=== PATIENT | female | born 1960 | race Caucasian/White ===

== ENCOUNTER → 2016-10-06 | Outpatient (CLI) | payer BC, OTHER | LOC: MRI 08:55 | DX: M47.26 Other spondylosis with radiculopathy, lumbar region (principal); M48.06 Spinal stenosis, lumbar region; M54.5 Low back pain ==

== ENCOUNTER → 2017-10-05 | Outpatient (CLI) | payer OTHER | LOC: CAT 05:55 | DX: Z13.6 Encounter for screening for cardiovascular disorders (principal) ==

== ENCOUNTER → 2019-03-04 | Outpatient (CLI) | payer OTHER | LOC: RAD 09:48 | DX: M16.11 Unilateral primary osteoarthritis, right hip (principal); M47.816 Spondylosis without myelopathy or radiculopathy, lumbar region; M41.86 Other forms of scoliosis, lumbar region; M76.9 Unspecified enthesopathy, lower limb, excluding foot ==

== ENCOUNTER → 2019-07-09 | Outpatient (CLI) | payer OTHER ==
[~2019-07-09] VITALS: Ht 175.3 cm; Wt 82.9 kg
[~2019-07-09] MED LIST: NABUMETONE 500500 M1 PO; TRAMADOL 50 MG50 MG PO
[2019-07-09 14:44] VITALS: BP 161/86
--- NOTE | 2019-07-09 14:59 | NUR ---
Pain Clinic Assessment: 1. History of Osteoarthritis: Not Applicable History of Rheumatoid Arthritis: Not Applicable 2. Height: 5 ft. 9 in. 175.3 cm. Weight: 182.8 lb. oz. 82.918 kg. Patient's BMI: 27.0 3. Vital Signs: BP: 161/86 Pulse: 82 Resp: 20 Temp: 02 Sat: 98 ECG Mon: 4. Pain Intensity: 3 5. Fall Risk: Dizziness: N Needs help standing or walking: N Fallen in the last 3 months: N Fall risk comments: 6. Patient on Blood Thinner: None 7. History of Hypertension: N 8. Opioid Therapy greater than 6 weeks: N Opiate Contract Signed: 9. Risk Assessment Tool Provided: 1-LOW RISK 10. Functional Assessment Tool: 11. Recreational Drug Use: Never Drug Type: Tobacco Use: Never Smoker Tobacco Type: Amount or Packs/day: How Many Years: Alcohol Use: Yes Frequency: Weekly Quant: 3 DRINKS PER WEEK
--- NOTE | 2019-07-15 07:54 | HPC ---
[facility] [address] [address] PAIN MANAGEMENT CONSULTATION Name: LASHAWN GONZALEZ Room #: [id number] Admission: 07/09/19 Attend Phys: Gabriel Nguyen DO Discharge: Date of : 64 Report #: [id number] THIS REPORT FOR: //name// CC: Gabriel Ag DATE OF SERVICE: 07/09/2019 CHIEF COMPLAINT: Right groin pain, right medial thigh pain. HISTORY OF PRESENT ILLNESS: As you know, the patient is a pleasant 58-year-old female who reports ongoing right groin pain and right medial thigh pain. She states pain began 09/2018. She indicates no specific injury or trauma that may have led to symptom occurrence. She has sought treatment, both conservative and more aggressive utilizing [id number] medications, rest, relaxation from a conservative standpoint. She sought evaluation through her primary care team who has trialled treatment with medication management. She is currently taking tramadol, which provides minimal improvement. The patient localizes pain in the inguinal area on the right with radiation along the medial aspect of the thigh. Pain does not reach the knee area. The patient indicates pain is exacerbated with activities, stretching and weightbearing appears to resolve with sitting and lying down. Due to lack of improvement with conservative treatment options, the patient was referred to our clinic. The patient reports today pain is constant. She describes the pain as throbbing. She places current pain score 3/10, daily average of 4/10, worst pain has been is 5/10. The patient states that stretching, walking long distances, standing for any length of time and trying to tie shoes exacerbate symptoms. Pain is improved with reduction in activity and staying in a seated or lying position. She has been referred to our service to discuss options for treatment for right groin and right medial thigh pain. PAST MEDICAL HISTORY: None. PAST SURGICAL HISTORY: 1. Laparoscopy. 2. Breast reduction. SOCIAL HISTORY: The patient denies tobacco, IV or illicit drug use. Admits to approximately 3 alcoholic beverages per week. She is currently employed as a director data. She is working, not receiving workmen's compensation nor is she trying to obtain disability benefits. He is not in litigation in regards to pain. She is unaccompanied at today's visit. REVIEW OF SYSTEMS: Positive for right groin pain, right medial thigh pain, [address] [address] PAIN MANAGEMENT CONSULTATION Name: LASHAWN GONZALEZ Room #: REG CL Cara#: [id number] Admission: 07/09/19 Attend Phys: Gabriel Nguyen DO Discharge: Date of : 64 Report #: [id number] difficulty with ambulation secondary to pain. All other review of systems negative per 12-point review of systems other than those listed in history of present illness. Pain impact score 31/70 indicating moderate interference of daily activities secondary to pain. ALLERGIES: NO REPORTED DRUG ALLERGIES. CURRENT MEDICATIONS: Tramadol 50 mg one tab p.o. q. 8 hours p.r.n. for pain. IMAGING: Only imaging available is from 2017 at an MRI of the lumbar spine, which shows changes at the L5-S1 level, though this is not consistent with the distribution of symptoms the patient is experiencing. PHYSICAL EXAMINATION: VITAL SIGNS: Blood pressure 161/86, pulse 82, respiratory rate 20 and unlabored. The patient is 98% on room air. Height 5 feet 9 inches tall, weight 182.8 pounds and BMI calculated 27.0. GENERAL: Well-developed, well-nourished, well-hydrated 58-year-old female appearing stated age, pain is rated today at 3/10. HEENT: Normocephalic, atraumatic. Pupils equal, round, reactive to light. Extraocular muscles are intact. Sclerae nonicteric without injection. NEUROLOGIC: Cranial nerves 2-12 grossly intact. Speech fluent. The patient deemed a good historian. LUNGS: Clear, no wheeze, rhonchi or rales. CARDIOVASCULAR: Regular. No appreciable gallop, no rub. ABDOMEN: Soft. Normoactive bowel sounds. EXTREMITIES: Show no clubbing, no cyanosis, and no edema. MUSCULOSKELETAL: Lower extremity strength appears equal and symmetrical 5/5. Slight giveaway strength with hip flexion on the right causing groin pain. Muscle bulk and tone appears symmetrical. She is intact to light touch from L1 through S2 dermatomes. Seated straight leg raising negative. Supine straight leg raising negative. Keyshawn's test is positive on the right. Modified Gaenslen's positive for some axial low back pain. Ankle clonus negative. Babinski is negative. She does have decreased tactile sensation across the dorsum of the toes on the right, negative left. There are no changes in skin color, texture or temperature. ASSESSMENT: 1. Chronic right groin pain. 2. Right medial thigh pain. 3. Arthritic changes of the right hip. 4. Lumbosacral spondylosis with possible radiculopathy. PLAN: 1. Based on today's physical exam and history the patient was provided and the distribution of symptoms, the patient is currently experiencing the likely [address] [address] PAIN MANAGEMENT CONSULTATION Name: LASHAWN GONZALEZ Room #: REG ANDERSON Marroquin#: [id number] Admission: 07/09/19 Attend Phys: Gabriel Nguyen DO Discharge: Date of : 64 Report #: [id number] source of the patient's pain is the actual right hip. It does not appear the patient has any radicular symptoms radiating causing the right groin and right medial thigh pain consistent with radiculopathy. The patient's pain is exacerbated with weightbearing, standing, walking and bending the hip, which would indicate more of an intrinsic hip pathology. The patient does have x-ray imaging that shows moderate to severe osteoarthritic changes, though this image is nearly 4-month-old. The patient and I discussed the findings of this imaging study and how it might correlate to her current symptoms. She is following up with Orthopedics next week. We will defer to the orthopedic physician to discuss treatment options for this right hip and possible impingement syndrome. 2. The patient and I did discuss the findings of her MRI from 2017. Unfortunately, this image is a tool to be useful in evaluation. The patient has had longstanding history of right foot numbness and tingling, which appears to be related to an L5 distribution though EMG from 2017 showed no specific neuropathy or radiculopathy. Unfortunately, the findings of the MRI from 2017 do show arthritic changes which given the patient's age and activity has likely worsened. Further evaluation with MRI could be considered. We will defer to the primary team if that is recommended. 3. The patient and I did discuss treatment options in generalities for lumbar radiculopathy assuming that the symptoms that she is experiencing in the foot are related to that condition. These would include physical therapy, stretching exercise, core strengthening. We discussed medication management utilizing neuropathic pain medications. We also discussed epidural injection under fluoroscopic guidance, spinal cord stimulator therapy and surgical options. At this point, the generator of pain the patient was experiencing that brought her to our clinic is not radicular in origin based on the exam today. The numbness and tingling in the foot given its usual lateral position its distribution would correlate to an L5 radiculopathy. It would be very unusual to have a unilateral neuropathy of unknown origin, though this cannot be fully ruled out. I was unable to elicit radicular symptoms with provocating testing today, though this does not indicate a potential of neuropathy. The patient indicates that this pain is not her biggest concern and she wishes to place this on the "back burner." We can certainly follow up with the patient in regards to this. 4. In regards to the patient's right groin and right medial thigh pain, the patient is going to be following up with Orthopedics in a week and a half or await their discussion before moving forward with interventional treatments. 5. We wish to thank Christine Perry for the opportunity to see this patient in consultation. We will keep you apprised of response to treatment as we address what appears to be 2 different pain generators 1 involving the right hip and the other involving possible lumbar radiculopathy. If we are in need of imaging, we will contact her clinic to have that performed. Again, we wish to thank you for the opportunity to see this patient in consultation. <ELECTRONICALLY SIGNED> By: Gabriel Nguyen DO 07/15/19 [id number] Gabriel Nguyen DO /nt
== END ==
LOC: PAIN 07:06
DX: R10.9 Unspecified abdominal pain (principal); M79.651 Pain in right thigh; M16.11 Unilateral primary osteoarthritis, right hip; M47.817 Spondylosis without myelopathy or radiculopathy, lumbosacral region